=== PATIENT | female | born 1970 | race Caucasian/White ===

== ENCOUNTER 2020-12-15 16:27 | Emergency (ER) | payer MEDICARE, OTHER ==
[~2020-12-15 16:27] MED LIST: ASPIRIN CHEWABL81 MG PO; BACTRIM DS TAB1 EACH PO; BENTYL 10MG CAP10 MG PO; BENTYL 20MG TAB20 MG PO; BUSPAR 5MG TABLE5 MG PO; CELEBREX200 MG PO; CIPRO500 MG PO; FLAGYL500 MG PO; IBUPROFEN600 MG PO; IMITREX100 MG PO; KEFLEX CAP 500500 MG PO; MACROBID 100 M100 MG PO; METHADONE HCL T10 MG PO; METHADONE HCL TA5 MG PO; MOBIC15 MG PO; NEURONTIN400 MG PO; ONDANSETRON ODT4 MG SL; PANTOPRAZOLE SO40 MG PO; PHENERGAN 25 MG25 M1 PO; PYRIDIUM100 MG PO; TOPAMAX100 MG PO; ZOFRAN ODT4 MG PO; ZOFRAN4 MG PO
== END 2020-12-15 17:43 | disposition left against medical advice (07) ==
LOC: ER1 16:27
DX: Z53.21 Procedure and treatment not carried out due to patient leaving prior to being seen by health care provider (principal)

== ENCOUNTER 2021-03-03 04:03 | Emergency (ER) | payer MEDICARE, OTHER | END 2021-03-03 05:45 | disposition home or self-care (01) | LOC: ER1 04:03 | DX: S01.81XA Laceration without foreign body of other part of head, initial encounter (principal); I10 Essential (primary) hypertension; Z88.0 Allergy status to penicillin; W01.0XXA Fall on same level from slipping, tripping and stumbling without subsequent striking against object, initial encounter; Y92.009 Unspecified place in unspecified non-institutional (private) residence as the place of occurrence of the external cause | CPT/HCPCS: 70450; 96374; 96375; 99283; J1200; J1885; J2765 ==

== ENCOUNTER 2022-02-28 22:03 | Emergency (ER) | payer MEDICARE, OTHER ==
[2022-03-01 00:48] LABS: HEMOGLOBIN 11.7 gm/dl (12.3-15.3); RED BLOOD COUNT 3.76 M/UL (4.00-5.10); WHITE BLOOD COUNT 7.9 K/UL (4.5-11.0)
[2022-03-01] MEDS ORDERED: COLACE 100MG C100 MG PO (04:57)
== END 2022-03-01 05:30 | disposition home or self-care (01) ==
LOC: ER1 22:03
PROVIDERS: Physician Assistant
DX: K62.5 Hemorrhage of anus and rectum (principal); I10 Essential (primary) hypertension; Z88.0 Allergy status to penicillin
CPT/HCPCS: 80053; 81001; 83690; 85025; 96374; 96375; 99284; J1885; J2405; Q9967

== ENCOUNTER 2022-07-06 13:19 | Observation (INO) | payer MEDICARE, OTHER ==
[~2022-07-06] VITALS: Ht 162.6 cm; Wt 72.6 kg
[~2022-07-06 13:19] MED LIST changes: +COLACE 100MG C100 MG PO; -NEURONTIN400 MG PO; +NEURONTIN600 MG PO
[2022-07-06 14:20] LABS: HEMOGLOBIN 11.2 gm/dl (12.3-15.3); RED BLOOD COUNT 3.73 M/UL (4.00-5.10); WHITE BLOOD COUNT 7.5 K/UL (4.5-11.0)
[2022-07-06] MEDS ORDERED: ABILIFY5 MG PO (18:28)
[2022-07-06] MEDS ORDERED: ESCITALOPRAM OX20 MG PO (18:28)
[2022-07-06] MEDS ORDERED: MESALAMINE DR400 MG PO (18:29)
[2022-07-06] MEDS ORDERED: PROTONIX20 MG PO (18:29)
[2022-07-06] MEDS ORDERED: ONDANSETRON HCL4 MG PO (18:29)
[2022-07-06] MEDS ORDERED: CELECOXIB200 MG PO (18:29)
[2022-07-06] MEDS ORDERED: ASPIRIN EC81 MG PO (18:30)
[2022-07-06] MEDS ORDERED: MOVANTIK25 MG PO (18:30)
[2022-07-06] MEDS ORDERED: LISINOPRIL10 MG PO (18:30)
[2022-07-07 03:43] LABS: HEMOGLOBIN 10.7 gm/dl (12.3-15.3); RED BLOOD COUNT 3.61 M/UL (4.00-5.10); WHITE BLOOD COUNT 7.9 K/UL (4.5-11.0)
--- NOTE | 2022-07-08 13:26 | NUR ---
REPORT CALLED TO ARACELI AT [facility].
== END 2022-07-08 13:45 | disposition home or self-care (01) ==
LOC: ER1 13:19 → CDU 17:48 → M/S 17:48
PROVIDERS: Emergency Medicine; ADMIT Internal Medicine
DX: N30.00 Acute cystitis without hematuria (principal); B96.20 Unspecified Escherichia coli [E. coli] as the cause of diseases classified elsewhere; N17.9 Acute kidney failure, unspecified; D50.9 Iron deficiency anemia, unspecified; I10 Essential (primary) hypertension; M54.50 Low back pain, unspecified; G89.29 Other chronic pain; F11.20 Opioid dependence, uncomplicated; Z79.82 Long term (current) use of aspirin; Z79.899 Other long term (current) drug therapy; Z88.0 Allergy status to penicillin; Z91.040 Latex allergy status; Z87.440 Personal history of urinary (tract) infections
CPT/HCPCS: 80053; 81001; 83605; 83690; 83735; 85025; 85027; 87040; 87077; 87086; 87186; 93005; 96365; 96367; 96374; 96375; 96376; 99285; C1751; G0378; J0696; J1335; J2270; J2405; Q9967